=== PATIENT | male | born 1970 | race African-American/Black ===

== ENCOUNTER 2021-01-29 20:30 | Emergency (ER) | payer SELFPAY ==
[~2021-01-29] VITALS: Ht 180.3 cm; Wt 127.3 kg
[2021-01-29] MEDS ORDERED: fentaNYL PF VIAL 100 MCG/2 ML VIAL IVP ONE (21:15)
[2021-01-29] MEDS ORDERED: ONDANSETRON PF 4 MG/2 ML VIAL. IVP ONE (21:15)
[2021-01-29] MEDS ORDERED: IV NORMAL SALINE 1000ML BAG 1,000 ML IV ONE (21:15)
--- NOTE | 2021-01-29 21:25 | ED.ADGEN ---
Past Medical History Past Surgical History: No Surgical History Smoking Status: Never Smoker Alcohol Use: Rarely General Adult EDM: Chief Complaint: ABDOMINAL PAIN HPI: HPI: Patient is a 51 year old male coming in for epigastric and right upper quad abdominal pain that started about 7 hours prior to arrival. Has had dry heaving and emesis. Denies any diarrhea. Says last p.o. intake was about 12 hours ago. Denies any medical or surgical history. Denies any tobacco, alcohol or drugs. Nuys any family history of gallbladder problems and denies any urinary Review of Systems: Review of Systems: All other systems within normal limits except for as noted in the HPI Current Medications: Current Medications Medications (Trade) Dose Ordered Sig/Mabel Start Time Stop Time Status Last Admin Dose Admin Diphenhydramine HCl (Benadryl) 25 mg 1X ONCE 01/29/21 23:00 01/29/21 23:01 DC 01/29/21 22:57 25 MG Fentanyl Citrate (Fentanyl 2ml Vial) 75 mcg 1X ONCE 01/30/21 02:15 01/30/21 02:16 DC 01/30/21 02:39 75 MCG Haloperidol Lactate (Haldol Inj) 5 mg 1X ONCE 01/29/21 23:00 01/29/21 23:01 DC 01/29/21 22:57 5 MG Info (CONTRAST GIVEN -- Rx MONITORING) 1 each PRN DAILY PRN 01/30/21 01:00 02/01/21 00:59 Iohexol (Omnipaque 300 Mg/ml) 75 ml 1X ONCE 01/30/21 01:00 01/30/21 01:01 DC Ondansetron HCl (Zofran Odt) 4 mg 1X ONCE 01/29/21 22:30 01/29/21 22:31 DC 01/29/21 22:25 4 MG Ondansetron HCl (Zofran) 4 mg 1X ONCE 01/29/21 21:15 01/29/21 21:25 DC Sodium Chloride 1,000 ml @ 1,000 mls/hr 1X ONCE 01/29/21 21:15 01/29/21 22:14 DC 01/30/21 01:00 1,000 MLS/HR Allergies: Allergies: Allergies Coded Allergies Type Severity Reaction Last Updated Verified No Known Drug Allergies 01/29/21 No Physical Exam: PE: Constitutional: Well developed, well nourished, no acute distress, non-toxic appearance. [] HENT: Normocephalic, atraumatic, bilateral external ears normal, nose normal. [] Eyes: PERRLA, conjunctiva normal, no discharge. [] Neck: No rigidity, supple, no stridor. [] Cardiovascular: Regular rate and rhythm, brisk cap refill [] Lungs & Thorax: Non labored symmetric respirations, no tachypnea or respiratory distress [] Abdomen: Soft, nondistended. Skin: Warm, dry, no erythema, no rash. [] Back: Unremarkable Extremities: No deformities, range of motion grossly intact, no lower extremity edema [] Neurologic: Alert and oriented X 3, no focal deficits noted. [] Psychologic: Affect normal, judgement normal, mood normal. [] Current Patient Data: Labs: Laboratory Tests Test 01/29/21 23:50 01/30/21 01:00 White Blood Count 19.2 x10^3/uL (4.0-11.0) H Red Blood Count 5.48 x10^6/uL (4.30-5.70) Hemoglobin 14.3 g/dL (13.0-17.5) Hematocrit 42.8 % (39.0-53.0) Mean Corpuscular Volume 78 fL (79-100) L Mean Corpuscular Hemoglobin 26 pg (25-35) Mean Corpuscular Hemoglobin Concent 33 g/dL (31-37) Red Cell Distribution Width 15.5 % (11.5-14.5) H Platelet Count 268 x10^3/uL (140-400) Neutrophils (%) (Auto) 75 % (31-73) H Lymphocytes (%) (Auto) 17 % (24-48) L Monocytes (%) (Auto) 8 % (0-9) Eosinophils (%) (Auto) 0 % (0-3) Basophils (%) (Auto) 1 % (0-3) Neutrophils # (Auto) 14.3 x10^3/uL (1.8-7.7) H Lymphocytes # (Auto) 3.3 x10^3/uL (1.0-4.8) Monocytes # (Auto) 1.5 x10^3/uL (0.0-1.1) H Eosinophils # (Auto) 0.0 x10^3/uL (0.0-0.7) Basophils # (Auto) 0.1 x10^3/uL (0.0-0.2) Sodium Level 139 mmol/L (136-145) Potassium Level 4.3 mmol/L (3.5-5.1) Chloride Level 99 mmol/L (98-107) Carbon Dioxide Level 29 mmol/L (21-32) Anion Gap 11 (6-14) Blood Urea Nitrogen 15 mg/dL (8-26) Creatinine 1.4 mg/dL (0.7-1.3) H Estimated GFR (Cockcroft-Gault) 64.9 BUN/Creatinine Ratio 11 (6-20) Glucose Level 114 mg/dL (70-99) H Calcium Level 9.3 mg/dL (8.5-10.1) Total Bilirubin 0.3 mg/dL (0.2-1.0) Aspartate Amino Transferase (AST) 27 U/L (15-37) Alanine Aminotransferase (ALT) 34 U/L (16-63) Alkaline Phosphatase 93 U/L (46-116) Troponin I Quantitative < 0.017 ng/mL (0.000-0.055) Total Protein 7.7 g/dL (6.4-8.2) Albumin 4.2 g/dL (3.4-5.0) Albumin/Globulin Ratio 1.2 (1.0-1.7) Lipase 82 U/L (73-393) Ethyl Alcohol Level < 10 mg/dL (0-10) Urine Collection Type Unknown Urine Color Yellow Urine Clarity Cloudy Urine pH 7.5 (<5.0-8.0) Urine Specific [place] >=1.030 (1.000-1.030) Urine Protein Negative mg/dL (NEG-TRACE) Urine Glucose (UA) Negative mg/dL (NEG) Urine Ketones (Stick) Negative mg/dL (NEG) Urine Blood Negative (NEG) Urine Nitrite Negative (NEG) Urine Bilirubin Negative (NEG) Urine Urobilinogen Dipstick 0.2 mg/dL (0.2 mg/dL) Urine Leukocyte Esterase Negative (NEG) Urine RBC Occ /HPF (0-2) Urine WBC Occ /HPF (0-4) Urine Squamous Epithelial Cells Occ /LPF Urine Bacteria 0 /HPF (0-FEW) Urine Mucus Slight /LPF Urine Opiates Screen Neg (NEG) Urine Methadone Screen Neg (NEG) Urine Barbiturates Neg (NEG) Urine Phencyclidine Screen Neg (NEG) Urine Amphetamine/Methamphetamine Neg (NEG) Urine Benzodiazepines Screen Neg (NEG) Urine Cocaine Screen Neg (NEG) Urine Cannabinoids Screen Pos (NEG) Urine Ethyl Alcohol Neg (NEG) Laboratory Tests 01/29/21 23:50 Laboratory Tests 01/29/21 23:50 Vital Signs: Vital Signs Date Time Temp Pulse Resp B/P (MAP) Pulse Ox O2 Delivery O2 Flow Rate FiO2 01/30/21 02:39 18 100 01/29/21 20:54 98.2 67 183/90 (121) Room Air 98.2 EKG: EKG: Sinus rhythm, heart rate 64 bpm, normal axis, no ST elevation or depression, no ectopy. [] Heart Score: C/O Chest Pain: No HEART Score for Chest Pain: HEART Score for Chest Pain Response (Comments) Value History Slighlty/Non-Suspicious 0 ECG Normal 0 Age >45 - < 65 1 Risk Factors 1 or 2 Risk Factors 1 Troponin < Normal Limit 0 Total 2 Risk Factors: Risk Factors: DM, Current or recent (<one month) smoker, HTN, HLP, family history of CAD, obesity. Risk Scores: Score 0 - 3: 2.5% MACE over next 6 weeks - Discharge Home Score 4 - 6: 20.3% MACE over next 6 weeks - Admit for Clinical Observation Score 7 - 10: 72.7% MACE over next 6 weeks - Early Invasive Strategies Radiology/Procedures: Radiology/Procedures: [facility] [address] [place] [address] IMAGING REPORT Signed PATIENT: MARJ ESPINOSA ACCOUNT: [id number] : 1970 LOCATION: ER AGE: 51 SEX: M EXAM STATUS: REG ER ORD. PHYSICIAN: BROOKE ALCANTAR MD REASON: RUQ pain PROCEDURE: ABDOMEN LTD US ABDOMEN LIMITED History: Reason: RUQ pain / Spl. Instructions: / History: Comparison: None. Technique: Transabdominal ultrasound images are obtained of the right upper quadrant. Findings: Liver is normal in echogenicity. Right hepatic lobe measures 14.3 cm. Portal flow is hepatopedal. Distended gallbladder. No cholelithiasis. No gallbladder wall thickening or pericholecystic fluid. Common bile duct measures 3 mm in diameter. Visualized pancreas not well seen due to overlying bowel gas. The right kidney measures 11.5 x 4.7 x 4.7 cm. No hydronephrosis. Visualized portions of the aorta and IVC have normal caliber. IMPRESSION: 1. Mild gallbladder distention. No cholelithiasis. Electronically signed by: Kamlesh Bryan DO (01/30/2021 1:39 AM) [facility] DICTATED and SIGNED BY: KAMLESH BRYAN DO DATE: 01/30/21 [id number] [][facility] [address] [place] [address] IMAGING REPORT Signed PATIENT: MARJ ESPINOSA ACCOUNT: [id number] : 1970 LOCATION: ER AGE: 51 SEX: M EXAM STATUS: REG ER ORD. PHYSICIAN: BROOKE ALCANTAR MD REASON: RUQ pain, OMNI 300 75 ML IV PROCEDURE: CT ABD PELV W/ IV CONTRST ONLY CT ABDOMEN+PELVIS W History: Reason: RUQ pain, OMNI 300 75 ML IV / Spl. Instructions: / History: Technique: After the administration of intravenous contrast, CT imaging was performed of the abdomen and pelvis. Multiplanar images are reviewed. Exposure: One or more of the following individualized dose reduction techniques were utilized for this examination: 1. Automated exposure control 2. Adjustment of the mA and/or kV according to patient size 3. Use of iterative reconstruction technique. Comparison: None Findings: Lower chest: Mild bilateral lower lobe linear atelectasis. Abdomen and pelvis: The liver, spleen, adrenal glands, pancreas and gallbladder are unremarkable. No biliary ductal dilatation. Patent portal vein. No renal calculus. No hydronephrosis. Normal appearance of the urinary bladder. Mild colonic diverticulosis. Normal appendix. No evidence of bowel obstruction. Hyperdensity within the duodenum most likely recently ingested medication. Small duodenal diverticulum. No pathologic lymphadenopathy. No ascites. Mild atheromatous plaque within the nonaneurysmal abdominal aorta and branch vessels. Bones: No pathologic osseous lesions. Impression: 1. No acute abdominal or pelvic pathology. Electronically signed by: Kamlesh Bryan DO (01/30/2021 3:40 AM) [facility] DICTATED and SIGNED BY: KAMLESH BRYAN DO DATE: 01/30/21 [id number] 0 Course & Med Decision Making: Course & Med Decision Making Pertinent Labs and Imaging studies reviewed. (See chart for details) Patient feeling better. Work-up unremarkable except for leukocytosis likely due to emesis. [] Dragon Disclaimer: Dragon Disclaimer: This electronic medical record was generated, in whole or in part, using a voice recognition dictation system. Departure Departure Impression: Primary Impression: Nausea & vomiting Disposition: 01 HOME / SELF CARE / HOMELESS Condition: STABLE Patient Instructions: Nausea and Vomiting Scripts Hydrocodone Bit/Acetaminophen (HYDROCODONE-APAP 5-325 ) 1 Tab Tablet 1 TAB PO PRN Q6HRS PRN for PAIN for 3 Days, #10 TAB 0 Refills Prov: BROOKE ALCANTAR MD 01/30/21 Ondansetron (ONDANSETRON ODT) 4 Mg Tab.rapdis 1 TAB PO PRN Q6-8HRS PRN for NAUSEA for 3 Days, #10 TAB Prov: BROOKE ALCANTAR MD 01/30/21 BROOKE ALCANTAR MD Jan 29, 2021 21:25
[2021-01-29] MEDS ORDERED: ONDANSETRON ODT 4 MG TAB.RAPDIS. PO ONE (22:30)
[2021-01-29] MEDS ORDERED: ONDANSETRON ODT 4 MG TAB.RAPDIS. ONE (22:30)
[2021-01-29] MEDS ORDERED: diphenhydrAMINE 50 MG/ML VIAL IM ONE (23:00)
[2021-01-29] MEDS ORDERED: HALOPERIDOL LACTATE 5 MG/ML VIAL. IM ONE (23:00)
[2021-01-30 00:19] LABS: BASO # 0.1 x10^3/uL (0.0-0.2); BASO % 1 % (0-3); EOS % 0 % (0-3); HEMATOCRIT 42.8 % (39.0-53.0); HEMOGLOBIN 14.3 g/dL (13.0-17.5); LYMPH # 3.3 x10^3/uL (1.0-4.8); LYMPH % 17 % (24-48); MEAN CORPUSCULAR HEMOGLOBIN 26 pg (25-35); MEAN CORPUSCULAR HGB CONC 33 g/dL (31-37); MEAN CORPUSCULAR VOLUME 78 fL (79-100); MONO # 1.5 x10^3/uL (0.0-1.1); MONO % 8 % (0-9); NEUT # 14.3 x10^3/uL (1.8-7.7); NEUT % 75 % (31-73); PLATELET COUNT 268 x10^3/uL (140-400); RED BLOOD COUNT 5.48 x10^6/uL (4.30-5.70); RED CELL DISTRIBUTION WIDTH 15.5 % (11.5-14.5); WHITE BLOOD COUNT 19.2 x10^3/uL (4.0-11.0)
[2021-01-30 00:32] LABS: CALCIUM 9.3 mg/dL (8.5-10.1); CREATININE 1.4 mg/dL (0.7-1.3); GFR 64.9; POTASSIUM 4.3 mmol/L (3.5-5.1)
[2021-01-30 00:38] LABS: ALBUMIN 4.2 g/dL (3.4-5.0); ALBUMIN/GLOBULIN RATIO 1.2 (1.0-1.7); TOTAL BILIRUBIN 0.3 mg/dL (0.2-1.0); TOTAL PROTEIN 7.7 g/dL (6.4-8.2)
[2021-01-30] MEDS ORDERED: CONTRAST GIVEN. MC PRN (01:00)
[2021-01-30] MEDS ORDERED: IOHEXOL 300 MG/ML 100ML VIAL. IV ONE (01:00)
[2021-01-30 01:15] LABS: BILIRUBIN,URINE NEGATIVE (NEG); CLARITY,URINE CLOUDY; COLOR,URINE YELLOW; NITRITE,URINE NEGATIVE (NEG); PH,URINE 7.5 (<5.0-8.0); PROTEIN,URINE NEGATIVE (NEG-TRACE); UROBILINOGEN,URINE 0.2 mg/dL (0.2 mg/dL)
[2021-01-30 01:21] LABS: BARBITURATES NEG (NEG); BENZODIAZEPINES NEG (NEG); CANNABINOIDS POS (NEG); COCAINE NEG (NEG); METHADONE NEG (NEG); OPIATES NEG (NEG); PHENCYCLIDINE NEG (NEG)
[2021-01-30 01:23] LABS: AMPHETAMINE/METHAMPHETAMINE NEG (NEG)
[2021-01-30 01:36] LABS: BACTERIA,URINE 0 /HPF (0-FEW); RBC,URINE OCC /HPF (0-2); WBC,URINE OCC /HPF (0-4)
--- NOTE | 2021-01-30 01:42 | RAD ---
US ABDOMEN LIMITED History: Reason: RUQ pain / Spl. Instructions: / History: Comparison: None. Technique: Transabdominal ultrasound images are obtained of the right upper quadrant. Findings: Liver is normal in echogenicity. Right hepatic lobe measures 14.3 cm. Portal flow is hepatopedal. Distended gallbladder. No cholelithiasis. No gallbladder wall thickening or pericholecystic fluid. Common bile duct measures 3 mm in diameter. Visualized pancreas not well seen due to overlying bowel gas. The right kidney measures 11.5 x 4.7 x 4.7 cm. No hydronephrosis. Visualized portions of the aorta and IVC have normal caliber. IMPRESSION: 1. Mild gallbladder distention. No cholelithiasis. Electronically signed by: Kamlesh Mckeon DO (01/30/2021 1:39 AM) [facility]
[2021-01-30] MEDS ORDERED: fentaNYL PF VIAL 100 MCG/2 ML VIAL IVP ONE (02:15)
--- NOTE | 2021-01-30 03:42 | RAD ---
CT ABDOMEN+PELVIS W History: Reason: RUQ pain, OMNI 300 75 ML IV / Spl. Instructions: / History: Technique: After the administration of intravenous contrast, CT imaging was performed of the abdomen and pelvis. Multiplanar images are reviewed. Exposure: One or more of the following individualized dose reduction techniques were utilized for thi s examination: 1. Automated exposure control 2. Adjustment of the mA and/or kV according to patient size 3. Use of iterative reconstruction technique. Comparison: None Findings: Lower chest: Mild bilateral lower lobe linear atelectasis. Abdomen and pelvis: The liver, spleen, adrenal glands, pancreas and gallbladder are unremarkable. No biliary ductal dilatation. Patent portal vein. No renal calculus. No hydronephrosis. Normal appearanc e of the urinary bladder. Mild colonic diverticulosis. Normal appendix. No evidence of bowel obstruction. Hyperdensity within t he duodenum most likely recently ingested medication. Small duodenal diverticulum. No pathologic lymp hadenopathy. No ascites. Mild atheromatous plaque within the nonaneurysmal abdominal aorta and branch vessels. Bones: No pathologic osseous lesions. Impression: 1. No acute abdominal or pelvic pathology. Electronically signed by: Kamlesh Mckeon DO (01/30/2021 3:40 AM) [facility]
[2021-01-30] MEDS ORDERED: HYDR-2761 PO (04:04)
[2021-01-30] MEDS ORDERED: ONDA4TAB12 PO (04:04)
[2021-01-30 04:10] VITALS: BP 155/70
[2021-01-30] MEDS ORDERED: ONDANSETRON ODT 4 MG TAB.RAPDIS. PO ONE (04:30)
[2021-01-30] MEDS ORDERED: HYDROcodone/APAP 7.5/325MG 1 TAB TABLET PO ONE (04:30)
[2021-01-30 04:32] LABS: PLT ESTIMATE ADEQUATE (ADEQUATE)
== END 2021-01-30 04:30 | disposition home or self-care (01) ==
LOC: ER 20:30
DX: R11.2 Nausea with vomiting, unspecified (principal); R10.11 Right upper quadrant pain
CPT/HCPCS: 36415; 74177; 76705; 80053; 80307; 81001; 83690; 84484; 85025; 96361; 96372; 96374; 99285; G0480; J1200; J1630; J3010; J7030; Q9967

== ENCOUNTER 2021-01-30 22:53 | Emergency (ER) | payer SELFPAY ==
[~2021-01-30] VITALS: Ht 180.3 cm; Wt 104.5 kg
[~2021-01-30 22:53] MED LIST: HYDR-2761 PO; ONDA4TAB12 PO
[2021-01-31] MEDS ORDERED: HALOPERIDOL LACTATE 5 MG/ML VIAL. IM ONE (01:00)
[2021-01-31] MEDS ORDERED: diphenhydrAMINE 50 MG/ML VIAL IM ONE (01:00)
[2021-01-31] MEDS ORDERED: fentaNYL PF VIAL 100 MCG/2 ML VIAL IM ONE (01:30)
[2021-01-31] MEDS ORDERED: ONDANSETRON ODT 4 MG TAB.RAPDIS. PO ONE (01:30)
--- NOTE | 2021-01-31 01:35 | ED.ADGEN ---
Past Medical History Past Surgical History: No Surgical History Smoking Status: Never Smoker Alcohol Use: Rarely General Adult EDM: Chief Complaint: NAUSEA/VOMITING/DIARRHEA HPI: HPI: Patient is a 51 year old male coming to emergency department for epigastric abdominal pain, nausea and vomiting starting at 4 PM. Patient was seen for the exact same presentation the night before by myself. Patient was treated and feeling better. Work-up and CT were unremarkable except for leukocytosis that was presumed to be likely due to the vomiting. Patient was positive for cannabis in his urine drug screen. He was discharged with prescriptions but never picked them up. Review of Systems: Review of Systems: All other systems within normal limits except for as noted in the HPI Current Medications: Current Medications Medications (Trade) Dose Ordered Sig/Mabel Start Time Stop Time Status Last Admin Dose Admin Acetaminophen/ Hydrocodone Bitart (Lortab 7.5/325) 1 tab 1X ONCE 01/31/21 05:00 01/31/21 05:01 Diphenhydramine HCl (Benadryl) 50 mg 1X ONCE 01/31/21 01:00 01/31/21 01:01 DC 01/31/21 01:02 50 MG Fentanyl Citrate (Fentanyl 2ml Vial) 100 mcg 1X ONCE 01/31/21 01:30 01/31/21 01:31 DC Haloperidol Lactate (Haldol Inj) 5 mg 1X ONCE 01/31/21 01:00 01/31/21 01:01 DC 01/31/21 01:02 5 MG Multi-Ingredient Mouthwash/Gargle (Gi Cocktail) 20 ml 1X ONCE 01/31/21 04:00 01/31/21 04:01 DC 01/31/21 04:04 20 ML Ondansetron HCl (Zofran Odt) 4 mg 1X ONCE 01/31/21 01:30 01/31/21 01:31 DC 01/31/21 04:02 4 MG Ringer's Solution 1,000 ml @ 1,000 mls/hr 1X ONCE 01/31/21 03:45 01/31/21 04:44 DC 01/31/21 03:54 1,000 MLS/HR Allergies: Allergies: Allergies Coded Allergies Type Severity Reaction Last Updated Verified No Known Drug Allergies 01/29/21 No Physical Exam: PE: Constitutional: Well developed, well nourished, no acute distress, non-toxic appearance. [] HENT: Normocephalic, atraumatic, bilateral external ears normal, nose normal. [] Eyes: PERRLA, conjunctiva normal, no discharge. [] Neck: No rigidity, supple, no stridor. [] Cardiovascular: Regular rate and rhythm, brisk cap refill [] Lungs & Thorax: Non labored symmetric respirations, no tachypnea or respiratory distress [] Abdomen: Soft, nondistended, of gas tenderness Skin: Warm, dry, no erythema, no rash. [] Back: Unremarkable Extremities: No deformities, range of motion grossly intact, no lower extremity edema [] Neurologic: Alert and oriented X 3, no focal deficits noted. [] Psychologic: Affect normal, judgement normal, mood normal. [] Current Patient Data: Labs: Laboratory Tests Test 01/31/21 03:39 01/31/21 04:25 White Blood Count 11.4 x10^3/uL (4.0-11.0) H Red Blood Count 5.50 x10^6/uL (4.30-5.70) Hemoglobin 14.5 g/dL (13.0-17.5) Hematocrit 43.1 % (39.0-53.0) Mean Corpuscular Volume 78 fL (79-100) L Mean Corpuscular Hemoglobin 26 pg (25-35) Mean Corpuscular Hemoglobin Concent 34 g/dL (31-37) Red Cell Distribution Width 16.0 % (11.5-14.5) H Platelet Count 350 x10^3/uL (140-400) Neutrophils (%) (Auto) 88 % (31-73) H Lymphocytes (%) (Auto) 8 % (24-48) L Monocytes (%) (Auto) 4 % (0-9) Eosinophils (%) (Auto) 0 % (0-3) Basophils (%) (Auto) 0 % (0-3) Neutrophils # (Auto) 10.0 x10^3/uL (1.8-7.7) H Lymphocytes # (Auto) 0.9 x10^3/uL (1.0-4.8) L Monocytes # (Auto) 0.5 x10^3/uL (0.0-1.1) Eosinophils # (Auto) 0.0 x10^3/uL (0.0-0.7) Basophils # (Auto) 0.0 x10^3/uL (0.0-0.2) Lactic Acid Level 2.0 mmol/L (0.4-2.0) Sodium Level 134 mmol/L (136-145) L Potassium Level 4.4 mmol/L (3.5-5.1) Chloride Level 96 mmol/L (98-107) L Carbon Dioxide Level 27 mmol/L (21-32) Anion Gap 11 (6-14) Blood Urea Nitrogen 10 mg/dL (8-26) Creatinine 1.3 mg/dL (0.7-1.3) Estimated GFR (Cockcroft-Gault) 70.7 BUN/Creatinine Ratio 8 (6-20) Glucose Level 121 mg/dL (70-99) H Calcium Level 9.2 mg/dL (8.5-10.1) Phosphorus Level 3.3 mg/dL (2.6-4.7) Magnesium Level 2.4 mg/dL (1.8-2.4) Total Bilirubin 0.4 mg/dL (0.2-1.0) Aspartate Amino Transferase (AST) 49 U/L (15-37) H Alanine Aminotransferase (ALT) 42 U/L (16-63) Alkaline Phosphatase 100 U/L (46-116) Total Protein 8.6 g/dL (6.4-8.2) H Albumin 4.3 g/dL (3.4-5.0) Albumin/Globulin Ratio 1.0 (1.0-1.7) Lipase 55 U/L (73-393) L Laboratory Tests 01/31/21 03:39 Laboratory Tests 01/31/21 04:25 Vital Signs: Vital Signs Date Time Temp Pulse Resp B/P (MAP) Pulse Ox O2 Delivery O2 Flow Rate FiO2 01/31/21 02:30 60 18 212/112 (145) 99 Room Air EKG: EKG: [] Heart Score: C/O Chest Pain: No Risk Factors: Risk Factors: DM, Current or recent (<one month) smoker, HTN, HLP, family history of CAD, obesity. Risk Scores: Score 0 - 3: 2.5% MACE over next 6 weeks - Discharge Home Score 4 - 6: 20.3% MACE over next 6 weeks - Admit for Clinical Observation Score 7 - 10: 72.7% MACE over next 6 weeks - Early Invasive Strategies Radiology/Procedures: Radiology/Procedures: [] Course & Med Decision Making: Course & Med Decision Making Labs improved from yesterday. Given fluids and p.o. challenge. Instructed to give his prescriptions and take as prescribed. Rafael Disclaimer: Rafael Disclaimer: This electronic medical record was generated, in whole or in part, using a voice recognition dictation system. Departure Departure Impression: Primary Impression: Nausea & vomiting Disposition: HOME / SELF CARE / HOMELESS Condition: IMPROVED Referrals: NO PCP (PCP) Patient Instructions: Nausea and Vomiting Additional Instructions: supervisor volunteer services your medications at [facility] which were sent there from your last visit yesterday, and take them as prescribed to help manage her symptoms. Drink plenty of fluids. BROOKE ALCANTAR MD Jan 31, 2021 01:35
[2021-01-31 03:44] LABS: BASO % 0 % (0-3); EOS % 0 % (0-3); HEMATOCRIT 43.1 % (39.0-53.0); HEMOGLOBIN 14.5 g/dL (13.0-17.5); LYMPH # 0.9 x10^3/uL (1.0-4.8); LYMPH % 8 % (24-48); MEAN CORPUSCULAR HEMOGLOBIN 26 pg (25-35); MEAN CORPUSCULAR HGB CONC 34 g/dL (31-37); MEAN CORPUSCULAR VOLUME 78 fL (79-100); MONO # 0.5 x10^3/uL (0.0-1.1); MONO % 4 % (0-9); NEUT % 88 % (31-73); PLATELET COUNT 350 x10^3/uL (140-400); WHITE BLOOD COUNT 11.4 x10^3/uL (4.0-11.0)
[2021-01-31] MEDS ORDERED: IV RINGERS,LACTATED 500ML 1,000 ML IV ONE (03:45)
[2021-01-31] MEDS ORDERED: LIDO:MAALOX 1:1 20 ML SINGLE DOSE. SWSW ONE (04:00)
[2021-01-31 04:48] LABS: CALCIUM 9.2 mg/dL (8.5-10.1); CREATININE 1.3 mg/dL (0.7-1.3); GFR 70.7; POTASSIUM 4.4 mmol/L (3.5-5.1)
[2021-01-31 04:50] VITALS: BP 195/88
[2021-01-31 04:50] LABS: ALBUMIN 4.3 g/dL (3.4-5.0); MAGNESIUM 2.4 mg/dL (1.8-2.4); PHOSPHORUS 3.3 mg/dL (2.6-4.7); TOTAL BILIRUBIN 0.4 mg/dL (0.2-1.0); TOTAL PROTEIN 8.6 g/dL (6.4-8.2)
[2021-01-31] MEDS ORDERED: HYDROcodone/APAP 7.5/325MG 1 TAB TABLET PO ONE (05:00)
[2021-01-31] MEDS ORDERED: fentaNYL PF VIAL 100 MCG/2 ML VIAL IVP ONE (05:15)
== END 2021-01-31 05:46 | disposition home or self-care (01) ==
LOC: ER 22:53
DX: R11.2 Nausea with vomiting, unspecified (principal); R10.13 Epigastric pain; R07.89 Other chest pain
CPT/HCPCS: 36415; 80053; 83605; 83690; 83735; 84100; 85025; 96361; 96372; 96374; 99285; J1200; J1630; J3010; J7120